=== PATIENT | female | born 1945 | race Caucasian/White ===

== ENCOUNTER 2017-05-05 19:31 | Emergency (ER) | payer MEDICARE ==
[2014-12-11 04:10] VITALS: BMI 29.1
[~2017-05-05 19:31] MED LIST: BUSPIRONE HCL30 MG PO; CELEXA10 MG PO; DIOVAN HCT 320/1 TA2 PO; GLUCOPHAGE500 MG PO; KLOR-CON M2020 MEQ; LASIX20 MG PO; NAPROSYN250 MG PO; NEURONTIN 300300 MG PO; PEPCID20 MG PO; ROBAXIN-750750 MG PO; TENORMIN50 MG PO; TOPAMAX50 MG PO
[2017-05-05 20:07] LABS: BASOPHILS 0.5 % (0-2); EOSINOPHILS 4.8 % (0-7); HEMATOCRIT 35.7 % (36.0-48.0); IMMATURE GRANULOCYTES 0.1 % (0-5); LYMPHOCYTES 34.8 % (15-50); MCH 31.5 pg (26.0-34.0); MCHC 33.6 g/dL (31.0-37.0); MCV 93.7 fL (80.0-100.0); MEAN PLATELET VOLUME 10.2 fL (7.4-10.4); MONOCYTES 7.3 % (2-11); NEUTROPHILS 52.5 % (40-80); PLATELET COUNT 230 10x3/uL (130-400); RBC 3.81 10x6/uL (4.00-5.40); RDW 12.2 % (11.5-14.5); WBC 7.9 10x3/uL (4.8-10.8)
[2017-05-05 20:23] LABS: ALBUMIN 3.4 g/dL (3.4-5.0); ANION GAP 11.5 mmol/L (8-16); BILIRUBIN - TOTAL 0.42 mg/dL (0.2-1.3); CALCIUM 8.7 mg/dL (8.5-10.1); CARBON DIOXIDE 28.3 mmol/L (21.0-32.0); CREATININE - SERUM 1.3 mg/dL (0.6-1.3); POTASSIUM - SERUM 3.8 mmol/L (3.5-5.1)
[2017-05-05 21:14] LABS: APPEARANCE CLEAR (CLEAR); BILIRUBIN NEGATIVE (NEGATIVE); COLOR YELLOW (YELLOW); GLUCOSE NEGATIVE (NEGATIVE); KETONE NEGATIVE (NEGATIVE); NITRITE NEGATIVE (NEGATIVE); PROTEIN NEGATIVE (NEGATIVE); UROBILINOGEN NORMAL (NORMAL)
== END 2017-05-05 22:30 | disposition home or self-care (01) ==
LOC: D.ER 19:31
PROVIDERS: Emergency Medicine
DX: R55 Syncope and collapse (principal); E11.9 Type 2 diabetes mellitus without complications; E86.0 Dehydration; I10 Essential (primary) hypertension

== ENCOUNTER → 2017-05-20 16:47 | Outpatient (CLI) | payer MEDICARE ==
[2014-12-11 04:10] VITALS: BMI 29.1
[2017-05-20 19:44] LABS: APPEARANCE CLEAR (CLEAR); BILIRUBIN NEGATIVE (NEGATIVE); COLOR YELLOW (YELLOW); GLUCOSE NEGATIVE (NEGATIVE); KETONE NEGATIVE (NEGATIVE); NITRITE NEGATIVE (NEGATIVE); PROTEIN NEGATIVE (NEGATIVE); UROBILINOGEN NORMAL (NORMAL)
== END | disposition home or self-care (01) ==
LOC: D.LABREF 16:47
PROVIDERS: Family Medicine
DX: N39.0 Urinary tract infection, site not specified (principal)